=== PATIENT | female | born 1945 | race Caucasian/White ===

== ENCOUNTER → 2016-08-30 08:32 | Outpatient (CLI) | payer MEDICARE, OTHER ==
[~2016-08-30 08:32] MED LIST: BAYER CHEWABLE81 MG PO; MUCINEX D1 TAB.SR . PO; SINGULAIR10 MG PO; SYMBICORT 16010.2 GM INH; TESSALON PERLE100 MG PO; XANAX0.25 MG PO
[2016-08-30 10:46] LABS: BASOPHILS 0.7 % (0.0-2.0); EOSINOPHILS 1.2 % (0-7); HEMATOCRIT 40.9 % (36.0-48.0); HEMOGLOBIN 13.1 g/dL (12-16); IMMATURE GRANULOCYTES 0.1 % (0-5); LYMPHOCYTES 37.8 % (15-50); MCH 30.5 pg (26.0-34.0); MCV 95.3 fL (80.0-100.0); MEAN PLATELET VOLUME 10.8 fL (7.4-10.4); NEUTROPHILS 55.2 % (40-80); PLATELET COUNT 213 10x3/uL (130-400); RBC 4.29 10x6/uL (4.00-5.40); RDW 13.1 % (11.5-14.5); WBC 7.4 10x3/uL (4.8-10.8)
[2016-08-31 08:19] LABS: ANA REFLEX - DIRECT Negative (Negative); IMMUNOGLOBULIN E 2 IU/mL (0-100)
[2016-08-31 12:16] LABS: IMMUNOGLOBULIN A 198 mg/dL (87-352); IMMUNOGLOBULIN G 1035 mg/dL (700-1600)
[2016-09-09 10:42] VITALS: BMI 19.4
[2016-09-28 19:10] LABS: FUNGAL - ASP FLAVUS Negative (Neg:<1:1); FUNGAL - ASP NIGER Negative (Neg:<1:1); FUNGAL - ASPER FUMIGATUS Negative (Neg:<1:1)
== END | disposition home or self-care (01) ==
LOC: D.RT 08:32
PROVIDERS: Internal Medicine Pulmonary Disease
DX: J47.9 Bronchiectasis, uncomplicated (principal)

== ENCOUNTER 2016-09-09 08:48 | Outpatient (CLI) | payer MEDICARE, OTHER ==
[~2016-09-09] VITALS: Ht 157.5 cm; Wt 48.2 kg
[2016-09-09] MEDS ORDERED: TESSALON PERLE100 MG PO (10:04)
[2016-09-09] MEDS ORDERED: SYMBICORT 16010.2 GM INH (10:05)
[2016-09-09] MEDS ORDERED: SINGULAIR10 MG PO (10:05)
[2016-09-09] MEDS ORDERED: MUCINEX D1 TAB.SR . PO (10:06)
[2016-09-09] MEDS ORDERED: XANAX0.25 MG PO (10:06)
[2016-09-09] MEDS ORDERED: BAYER CHEWABLE81 MG PO (10:07)
[2016-09-09 10:09] LABS: BASOPHILS 0.2 % (0.0-2.0); EOSINOPHILS 0.9 % (0-7); HEMATOCRIT 37.4 % (36.0-48.0); HEMOGLOBIN 12.3 g/dL (12-16); IMMATURE GRANULOCYTES 0.2 % (0-5); LYMPHOCYTES 38.8 % (15-50); MCH 30.1 pg (26.0-34.0); MCHC 32.9 g/dL (31.0-37.0); MCV 91.7 fL (80.0-100.0); MEAN PLATELET VOLUME 9.9 fL (7.4-10.4); NEUTROPHILS 53.9 % (40-80); PLATELET COUNT 235 10x3/uL (130-400); RBC 4.08 10x6/uL (4.00-5.40); RDW 12.6 % (11.5-14.5); WBC 5.5 10x3/uL (4.8-10.8)
[2016-09-09 10:16] LABS: INR 0.9 (0.85-1.17)
[2016-09-09 10:17] LABS: APTT 26.3 SECONDS (22.8-39.4)
[2016-09-09 10:42] VITALS: BP 132/77; Ht 157.5 cm; Wt 48.2 kg
--- NOTE | 2016-09-09 11:30 | NUR ---
REPORT FROM ROBERT GUIDO. PT RESTING WITH EYES CLOSED, RESPONDS TO VERBAL QUESTIONS. VSS. PT REPORTS 0/10 FOR PAIN. WILL OFFER FULL LIQUIDS IN 2 HRS (1330) AND ADVANCE TOLERATED. WILL MONITOR.
--- NOTE | 2016-09-09 12:00 | NUR ---
1200- PT CONTINUES TO REST. VSS. O2 NC REMOVED WILL MONITOR. NO C/O PAIN OR COUGH AT THIS TIME.
--- NOTE | 2016-09-09 13:00 | NUR ---
CONTINUES TO BE NPO. NO PAIN REPORTED. VSS. HOB CONTINUES TO BE ELEVATED AT 30 DEGREES. WILL OFFER LIQUIDS AT 1330 IF THROAT IS NOT NUMB AND PT IS POSITIVE WITH GAG REFLEX. WILL CONTINUE TO MONITOR.
--- NOTE | 2016-09-09 13:36 | NUR ---
FULL LIQUID TRAY OFFERED. PT GAG REFLEX INTACT AND REPORTS BEING ABLE TO SWALLOW WELL. WILL MONITOR.
[2016-09-09 14:04] LABS: LYMPH - BF 8 %; MACROPHAGES BF 2 %; MESOTHELIALS BF 5 %; NEUT - BF 85 %
--- NOTE | 2016-09-09 14:49 | NUR ---
1400- UP OOB TO BR, VOIDED WITHOUT DIFFICULTY. 1410- IV D/C'D, PT TOLERATED. CATHETER INTACT. 1415- DISCHARGE INSTRUCTIONS COMPLETED AND SIGNED. PT VERBALIZED UNDERSTANDING. 1425- PT D/C'D VIA WHEELCHAIR WITH BROTHER AND [id number].
--- NOTE | 2016-09-09 14:52 | NUR ---
VS ON PROCEDURE CHECK SHEET IN CHART.
[2016-09-10 18:09] LABS: ACID FAST SMEAR Negative (()); AFB SPECIMEN PROCESSING Concentration (())
[2016-09-13 13:13] LABS: FUNGUS STAIN Final report (())
[2016-09-19 08:14] LABS: FUNGUS CULTURE RESULT 1 Candida albicans (())
[2016-09-20 07:10] LABS: VIRAL - RESULT No virus isolated. (())
[2016-10-07 09:18] LABS: FUNGUS MYCOLOGY CULTURE Final report (())
== END 2016-09-09 14:25 | disposition home or self-care (01) ==
LOC: D.OPS 08:48
PROVIDERS: Internal Medicine Pulmonary Disease
DX: J47.9 Bronchiectasis, uncomplicated (principal); J45.909 Unspecified asthma, uncomplicated; R05 Cough; I27.2 Other secondary pulmonary hypertension; I07.1 Rheumatic tricuspid insufficiency; M19.90 Unspecified osteoarthritis, unspecified site; R63.4 Abnormal weight loss; E55.9 Vitamin D deficiency, unspecified; F41.9 Anxiety disorder, unspecified; F03.90 Unspecified dementia, unspecified severity, without behavioral disturbance, psychotic disturbance, mood disturbance, and anxiety

== ENCOUNTER 2016-12-13 10:52 | Outpatient (CLI) | payer MEDICARE, OTHER ==
[2016-09-09 10:42] VITALS: BMI 19.4
== END 2016-12-13 11:26 ==
LOC: D.MAMMO 10:52
DX: N63 Unspecified lump in breast (principal)

== ENCOUNTER → 2016-12-29 13:07 | Outpatient (CLI) | payer MEDICARE, OTHER ==
[2016-09-09 10:42] VITALS: BMI 19.4
== END | disposition home or self-care (01) ==
LOC: D.US 13:07
DX: N63 Unspecified lump in breast (principal); R92.8 Other abnormal and inconclusive findings on diagnostic imaging of breast

== ENCOUNTER → 2017-09-12 08:15 | Outpatient (CLI) | payer MEDICARE, OTHER ==
[2016-09-09 10:42] VITALS: BMI 19.4
== END | disposition home or self-care (01) ==
LOC: D.RT 08:15
DX: J47.9 Bronchiectasis, uncomplicated (principal)

== ENCOUNTER → 2018-03-06 09:07 | Outpatient (CLI) | payer MEDICARE, OTHER ==
[2016-09-09 10:42] VITALS: BMI 19.4
== END | disposition home or self-care (01) ==
LOC: D.CT 09:07
DX: J47.9 Bronchiectasis, uncomplicated (principal)

== ENCOUNTER → 2018-04-05 09:31 | Outpatient (CLI) | payer MEDICARE, OTHER ==
[2016-09-09 10:42] VITALS: BMI 19.4
--- NOTE | ~2018-04-05 | EC ---
PATIENT:SAUNDRA HEATH DATE OF SERVICE: 04/05/18 SEX: F MEDICAL RECORD: [id number] DATE OF : 49 LOCATION:D[facility] AGE OF PATIENT: 72 ADMISSION DATE: 04/05/18 REFERRING PHYSICIAN: INTERPRETING PHYSICIAN: CLAUDIO CLAY MD ECHOCARDIOGRAM REPORT ECHO CHARGES 4 ECHO COMPLETE Date: 04/05/18 CLINICAL DIAGNOSIS: DYSPNEA ECHOCARDIOGRAPHIC MEASUREMENTS (adult normal given) AC root (d.<3.7cm) 2.3 cm LV Septum d (<1.2 cm> 0.6 cm Valve Excursion 1.1 cm LV Septum (systole) 0.7 cm Left Atria (s.<4.0cm> 2.9 cm LVPW d(<1.2cm) 0.5 cm RV (d.<2.3cm) 2.2 cm LVPW (sytole) 0.7 cm LV diastole(<5.6CM) 4.0 cm MV E-F(>70mm/sec) cm LV systole 3.2 cm LVOT Diameter 1.7 cm MV exc.(>10mm) cm Est.ejection fraction (50-75%) % DOPPLER: LVIT cm/sec A 79 cm/sec E 57 cm/sec LA cm/sec RVSP 31.1 mmHg LVOT 81 cm/sec AOP1/2T m/s Asc. Ao 113 cm/sec RVOT 61 cm/sec RA cm/sec PA 68 cm/sec AV Gradient Peak 5.1 mmHg AV Mean 3.6 mmHg AV Area 1.5 cm MV Gradient Peak 3.4 mmHg MV Mean 1.7 mmHg MV Area cm COMMENTS: Telecommunication Lines Repairer: Butch [facility] Product Design Engineer: 4 Dr. Clay TAPE# PACS Pericardial Effusion N DATE OF SERVICE: PROCEDURE: Transthoracic echocardiogram. FINDINGS: 1. The left ventricle shows normal left ventricular function. Right ventricle is normal. Right ventricular function, shape and structure. 2. The left atrium is normal. 3. Aortic valve is normal. 4. The aortic, mitral and tricuspid valves are normal. RVSP is normal. There ECHOCARDIOGRAM REPORT [id number] SAUNDRA HEATH is no pericardial effusion. CONCLUSIONS: This is a normal echocardiogram with the exception of inflow characteristics consistent with diastolic dysfunction. TRANSINT:[id number] Voice Confirmation ID: [id number] DOCUMENT ID: [id number] CLAUDIO CLAY MD at 2344 CC: [id number] DICTATION DATE: 04/06/18808 TECHNICAL SALES ASSOCIATE: 04/06/18820 DEP CLI 04/05/18 [id number] [place] [address]
== END | disposition home or self-care (01) ==
LOC: D.ECHO 09:31
DX: R07.9 Chest pain, unspecified (principal); R06.00 Dyspnea, unspecified

== ENCOUNTER → 2019-02-16 08:25 | Outpatient (CLI) | payer MEDICARE, OTHER ==
[2016-09-09 10:42] VITALS: BMI 19.4
== END | disposition home or self-care (01) ==
LOC: D.RT 08:25
PROVIDERS: ATTEND Internal Medicine Pulmonary Disease
DX: J44.9 Chronic obstructive pulmonary disease, unspecified (principal)

== ENCOUNTER → 2020-03-24 09:00 | Outpatient (CLI) | payer MEDICARE, OTHER ==
[2016-09-09 10:42] VITALS: BMI 19.4
== END | disposition home or self-care (01) ==
LOC: D.LAB 09:00
PROVIDERS: ATTEND Internal Medicine Pulmonary Disease
DX: Z11.59 Encounter for screening for other viral diseases (principal)

== ENCOUNTER → 2020-03-27 10:49 | Outpatient (CLI) | payer MEDICARE, OTHER ==
[2016-09-09 10:42] VITALS: BMI 19.4
== END | disposition home or self-care (01) ==
LOC: D.CT 10-29 13:00 → D.RT 10-29 13:30 → D.CT 02-20 10:30 → D.RT 10:30
PROVIDERS: ATTEND Internal Medicine Pulmonary Disease
DX: J47.9 Bronchiectasis, uncomplicated (principal)